=== PATIENT | female | born 1985 | race Caucasian/White ===

== ENCOUNTER 2024-09-15 16:35 | Emergency (ER) | payer OTHER ==
[~2024-09-15] VITALS: Ht 162.6 cm; Wt 58.1 kg
[2024-09-15] MEDS ORDERED: birth control pills (16:55)
[2024-09-15 17:33] LABS: *BILIRUBIN,URIN NEGATIVE (NEGATIVE); *CLARITY,URINE CLEAR (CLEAR); *COLOR,URINE YELLOW (YELLOW); *KETONES,URINE NEGATIVE (NEGATIVE); *PROTEIN,URINE NEGATIVE (NEGATIVE); *UROBILINOGEN,URINE 0.2 E.U./dl (NORMAL); LEUKOCYTE ESTERASE ,URINE NEGATIVE (NEGATIVE); NITRITE, URINE NEGATIVE (NEGATIVE); PH,URINE 8.5 (5.0-8.0); UGLUCOSE NEGATIVE (NEGATIVE)
[2024-09-15 17:35] LABS: BASOPHILS % (AUTO) 0.6 % (0.0-2.0); EOSINOPHILS # (AUTO) 0.1 K/uL (0.0-0.7); EOSINOPHILS % (AUTO) 1.2 % (0.0-7.0); HEMATOCRIT 40.6 % (31.2-41.9); HEMOGLOBIN 13.4 g/dL (10.9-14.3); LYMPHOCYTES # (AUTO) 2.7 K/uL (0.8-4.8); LYMPHOCYTES % (AUTO) 36.7 % (20.5-51.5); MEAN CORPUSCULAR HEMOGLOBIN 29.1 uug (24.7-32.8); MEAN CORPUSCULAR HGB CONC 33 g/dL (32.3-35.6); MEAN CORPUSCULAR VOLUME 88.2 fL (75.5-95.3); MONOCYTES # (AUTO) 0.5 K/uL (0.1-1.30); MONOCYTES % (AUTO) 6.7 % (0.0-11.0); NEUTROPHILS % (AUTO) 54.8 % (38.5-71.5); PLATELET COUNT (AUTO) 361 K/uL (179-408); WHITE BLOOD COUNT (AUTO) 7.4 K/uL (3.8-11.8)
[2024-09-15 17:38] LABS: *BLOOD, URINE NEGATIVE (NEGATIVE)
[2024-09-15 17:39] LABS: DIFFERENTIAL COMMENT 1
[2024-09-15 17:39] LABS: *URINE HCG, QUAL NEGATIVE (NEGATIVE)
[2024-09-15 17:43] LABS: CARBON DIOXIDE 30 mmol/L (21-32); CHLORIDE 105 mmol/L (98-107); CREATININE 0.7 mg/dL (0.6-1.3); GLUCOSE 105 mg/dL (74-106); POTASSIUM 3.7 mmol/L (3.5-5.1); SODIUM SERUM 143 mmol/L (136-145); UREA NITROGEN, BLOOD 13 mg/dL (7-18)
[2024-09-15 18:26] VITALS: BP 117/70; TEMP 97.9; O2SAT 99
== END 2024-09-15 18:27 | disposition home or self-care (01) ==
LOC: ER 16:35
DX: R00.2 Palpitations (principal); R53.83 Other fatigue; R10.2 Pelvic and perineal pain; Z79.3 Long term (current) use of hormonal contraceptives; Z88.0 Allergy status to penicillin
CPT/HCPCS: 36415; 71045; 84443; 84484; 84703; 85025; A4606; A4663